=== PATIENT | male | born 1960 ===

== ENCOUNTER 2019-10-25 07:21 | Emergency (ER) | payer BC ==
--- NOTE | 2019-10-25 08:05 | UC ---
Complaint Male HPI - HPI Summary HPI Summary: Patient is a 59yo male with htn presenting with c/o L flank pain and nausea that woke him up this morning at 5am. Patient states this pain felt "like spasms " and would come and go for an hour and a half. States his pain and nausea have been gone for the past hour. Denies hematuria. Denies abdominal pain. Notes urinating more frequently yesterday. Denies frequency and urgency today. Denies decreased appetite. Denies dysuria. Denies changes in BMs. Denies injury or trauma to back. Denies fever and chills. Denies nausea or vomiting. Denies h/ o kidney stones. - History of Current Complaint Chief Complaint: UCBackPain Stated Complaint: BACK PAIN Hx Obtained From: Patient Onset/Duration: Sudden Onset, Lasting Hours Timing: Intermittent Severity Initially: Moderate Severity Currently: None Pain Intensity: 7 Pain Scale Used: 0-10 Numeric - Allergies/Home Medications Allergies/Adverse Reactions: Allergies Allergy/AdvReac Type Severity Reaction Status Date / Time No Known Allergies Allergy Verified 10/25/19 07:26 Home Medications: Home Medications Lisinopril TAB* [Prinivil TAB*] 10 mg PO DAILY 10/25/19 [History Confirmed 10/25] PMH/Surg Hx/FS Hx/Imm Hx Cardiovascular History: Hypertension - Surgical History Surgical History: Yes Surgery Procedure, Year, and Place: R total knee 2017 - Family History Known Family History: Positive: Unknown - Social History Alcohol Use: None Substance Use Type: None Smoking Status (MU): Never Smoked Tobacco Review of Systems All Other Systems Reviewed And Are Negative: Yes Constitutional: Positive: Negative Respiratory: Positive: Negative Cardiovascular: Positive: Negative Gastrointestinal: Positive: Nausea Genitourinary: Positive: Frequency, Other - L flank pain. Negative: Dysuria, Hematuria, Urgency, Vaginal/Penile Burning Musculoskeletal: Positive: Negative Neurological: Positive: Negative Physical Exam Triage Information Reviewed: Yes Appearance: Well-Appearing, No Pain Distress, Well-Nourished Vital Signs: Initial Vital Signs Temp 97.9 F 10/25/19 07:27 Pulse 73 10/25/19 07:27 Resp 18 10/25/19 07:27 BP 143/82 10/25/19 07:27 Pulse Ox 97 10/25/19 07:27 Lab Results 11/30/19 Range/Units 07:39 POC Urine Color Yellow POC Urine Clarity Clear POC Urine pH 5.0 (5-9) POC Ur Specif [place] >= 1.030 (1.010-1.030) POC Urine Protein Negative (Negative) POC Ur Glucose (UA) Negative (Negative) POC Urine Ketones Negative (Negative) POC Urine Blood 3+ A (Negative) POC Urine Nitrite Negative (Negative) POC Urine Bilirubin Negative (Negative) POC Urine Urobilinogen 0.2 (Negative) POC U Leukocyte Esteras Negative (Negative) Vital Signs Reviewed: Yes Eyes: Positive: Conjunctiva Clear ENT: Positive: Hearing grossly normal Neck: Positive: Supple Respiratory Exam: Normal Respiratory: Positive: Lungs clear, Normal breath sounds, No respiratory distress Cardiovascular Exam: Normal Cardiovascular: Positive: RRR Abdominal Exam: Normal Abdomen Description: Positive: Nontender, Soft. Negative: CVA Tenderness (R), CVA Tenderness (L), Distended, Guarding Bowel Sounds: Positive: Present Neurological: Positive: Alert Psychological: Positive: Age Appropriate Behavior Skin Exam: Normal Complaint Male Course/Dx - Course Course Of Treatment: Patient afebrile and in no pain distress. Patient denies nausea currently. PE findings normal. Discussed blood in his urine today and possible kidney stone based on history and symptoms. Instructed to go to ED if symptoms recur, worsen , or he experiences new symptoms. Informed him we do not have CT available here today. Patient voiced understanding and agreed with the plan. - Differential Dx/Diagnosis Differential Diagnosis/HQI/PQRI: Ureteral Calculi, Urinary Tract Infection Provider Diagnosis: Acute flank pain Discharge ED - Sign-Out/Discharge Documenting (check all that apply): Patient Departure All imaging exams completed and their final reports reviewed: No Studies - Discharge Plan Condition: Stable Disposition: HOME Patient Education Materials: Kidney Stones (ED) Referrals: [facility] [Outside] - If Needed Additional Instructions: As discussed, you may have a kidney stone. Increase your fluid intake. Go to the emergency room if you experience new or worsening symptoms. - Billing Disposition and Condition Condition: STABLE Disposition: Home
== END 2019-10-25 08:50 | disposition home or self-care (01) ==
LOC: UCEAST 07:21
DX: R10.9 Unspecified abdominal pain (principal); R11.0 Nausea; I10 Essential (primary) hypertension; Z79.899 Other long term (current) drug therapy
CPT/HCPCS: 81003; 99201; G0463